=== PATIENT | male | born 1970 | race Caucasian/White ===

== ENCOUNTER 2018-03-30 15:20 | Emergency (ER) | payer MEDICAID, OTHER ==
[~2018-03-30] VITALS: Ht 172.7 cm; Wt 90.0 kg
[~2018-03-30 15:20] MED LIST: LISI-366 PO
[2018-03-30 15:22] VITALS: BP 156/74; PULSE 63; RESP 17; TEMP 98.3; O2SAT 98
[2018-03-30] MEDS ORDERED: LISI40TA PO (16:47)
--- NOTE | 2018-03-30 17:40 | PD ---
HPI Chief Complaint: General Weakness Time Seen by Provider: 17:10 Travel History International Travel<30 days: No Contact w/Intl Traveler<30days: No Traveled to known affect area: No History of Present Illness HPI 47yo M with PMH of HTN was sent here from PMD to the ED for further work up. Pt has been having generalized pain for 5 days from neck to legs and feels like muscle pain. Had went to [facility] ED 5 days ago and they did strep and influenza which was negative. Then he had fever 4 days ago and went to the ED at [facility] again 3 days ago. Said they did blood work and then sent him home. Pt followed up with his primary care today and was told to go to the ED. 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 Said it has actually improved but still weakness than before. Denies any focal weakness in arms or legs but more generalized weakness. Denies any visual changes, speech changes, numbness, chest pain, sob, n/v, abdominal pain. PFSH Past Medical History Hypertension: Yes Social History Alcohol Use: Yes Tobacco Use: No Substance Use: No Allergies-Medications (Allergen,Severity, Reaction): Coded Allergies: erythromycin base (Unverified Allergy, Unknown, 03/30/18) penicillin G (Unverified Allergy, Unknown, 03/30/18) atorvastatin (Unverified Adverse Reaction, Intermediate, MUSCLE SPASMS, ) amoxicillin (Unverified Adverse Reaction, Unknown, 03/30/18) Reported Meds & Prescriptions Reported Meds & Active Scripts Active Reported Lisinopril 40 Mg Tab 40 Mg PO DAILY Review of Systems Except as stated in HPI: all other systems reviewed are Neg Physical Exam Narrative GENERAL: 47yo M in distress. SKIN: Focused skin assessment warm/dry. HEAD: Atraumatic. Normocephalic. EYES: Pupils equal and round. No scleral icterus. No injection or drainage. ENT: No nasal bleeding or discharge. Mucous membranes pink and moist. NECK: Trachea midline. No JVD. CARDIOVASCULAR: Regular rate and rhythm. No murmur appreciated. RESPIRATORY: No accessory muscle use. Clear to auscultation. Breath sounds equal bilaterally. GASTROINTESTINAL: Abdomen soft, non-tender, nondistended. MUSCULOSKELETAL: No obvious deformities. No clubbing. No cyanosis. No edema. NEUROLOGICAL: Awake and alert. No obvious cranial nerve deficits. Motor grossly within normal limits in all extremities. Sensation intact. 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 Normal speech. PSYCHIATRIC: Appropriate mood and affect; insight and judgment normal. Data Data Last Documented VS Vital Signs Date Time Temp Pulse Resp B/P (MAP) Pulse Ox O2 Delivery O2 Flow Rate FiO2 03/30/18 16:42 18 03/30/18 15:22 98.3 63 156/74 (101) 98 Orders Orders Electrocardiogram (03/30/18 ) Mri Brain W/O Contrast (03/30/18 ) Complete Blood Count With Diff (03/30/18 17:31) Basic Metabolic Panel (Bmp) (03/30/18 17:31) Creatine Kinase (Cpk) (03/30/18 17:31) Magnesium (Mg) (03/30/18 17:31) CKMB (03/30/18 18:30) CKMB% (03/30/18 18:30) Sodium Chlor 0.9% 1000 Ml Inj (Ns 1000 M (03/30/18 19:30) Sodium Chlor 0.9% 1000 Ml Inj (Ns 1000 M (03/30/18 19:30) Sodium Chlor 0.9% 1000 Ml Inj (Ns 1000 M (03/30/18 19:30) Creatine Kinase (Cpk) (03/30/18 21:03) CKMB (03/30/18 21:54) CKMB% (03/30/18 21:54) Labs Laboratory Tests Test 03/30/18 18:30 03/30/18 21:54 White Blood Count 4.3 TH/MM3 Red Blood Count 4.74 MIL/MM3 Hemoglobin 14.7 GM/DL Hematocrit 42.0 % Mean Corpuscular Volume 88.5 FL Mean Corpuscular Hemoglobin 31.1 PG Mean Corpuscular Hemoglobin Concent 35.1 % Red Cell Distribution Width 13.2 % Platelet Count 275 TH/MM3 Mean Platelet Volume 7.4 FL Neutrophils (%) (Auto) 53.4 % Lymphocytes (%) (Auto) 33.2 % Monocytes (%) (Auto) 9.8 % Eosinophils (%) (Auto) 2.8 % Basophils (%) (Auto) 0.8 % Neutrophils # (Auto) 2.3 TH/MM3 Lymphocytes # (Auto) 1.4 TH/MM3 Monocytes # (Auto) 0.4 TH/MM3 Eosinophils # (Auto) 0.1 TH/MM3 Basophils # (Auto) 0.0 TH/MM3 CBC Comment DIFF FINAL Differential Comment Blood Urea Nitrogen 19 MG/DL Creatinine 0.79 MG/DL Random Glucose 88 MG/DL Calcium Level 9.2 MG/DL Magnesium Level 2.3 MG/DL Sodium Level 139 MEQ/L Potassium Level 4.6 MEQ/L Chloride Level 103 MEQ/L Carbon Dioxide Level 26.7 MEQ/L Anion Gap 9 MEQ/L Estimat Glomerular Filtration Rate 106 ML/MIN Total Creatine Kinase 3371 U/L 2322 U/L Creatine Kinase MB 56.2 NG/ML 40.7 NG/ML Creatine Kinase MB % 1.7 % 1.8 % MDM Medical Decision Making Medical Screen Exam Complete: Yes Emergency Medical Condition: Yes Interpretation(s) EKG: Sinus bradycardia at 51bpm. Normal axis. No ST segment elevation or depression. Differential Diagnosis Lacunar stroke vs. myositis vs. rhabdomyolitis vs. electrolyte abnormality vs. dehydration Narrative Course 47yo M with generalized muscle pain and weakness for 5 days. This is his third ED visit and said he did have some weakness in his hands. 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 MRI brain showed no acute intracranial abnormality is identified to explain the clinical symptoms. There is a mucous retention cyst in right maxillary sinus. Labs reviewed, no leukocytosis. H/H normal. BUN/creatinine ratio elevated. Creatinine is normal at 0.79. CPK is elevated at 3371. Pt denies working out a lot but did say he has been working a lot. Pt given NS IVF x3. Pt reevaluated at bedside and feels better. Repeat CPK is trending down to 2322. Advised pt to orally hydrate and follow up with primary care physician. Return precautions given. Diagnosis Primary Impression: Rhabdomyolysis Qualified Codes: M62.82 - Rhabdomyolysis Patient Instructions: General Instructions Departure Forms: Tests/Procedures Additional Instructions: Please follow up with your primary care physician in 2-3 days. Return to the ED if symptoms worsen. Med/Other Pt SpecificInfo: No Change to Meds Disposition: 01 DISCHARGE HOME Condition: Stable Rosalinda Kemp DO March 30, 2018 17:40
--- NOTE | 2018-03-30 18:36 | RADRPT ---
EXAM DATE: 03/30/2018 6:21 PM EDT AGE/SEX: 47 years / Male INDICATIONS: . General weakness over entire body. CLINICAL DATA: This is the patient's initial encounter. Patient reports that signs and symptoms have been present for 4 - 6 days and indicates a pain score of 6/10. MEDICAL/SURGICAL HISTORY: Hypertension. Renal calculi. . Shoulder sx. COMPARISON: No prior [facility] exams available for comparison. TECHNIQUE: Multiplanar, multisequence examination of the brain was performed without contrast. FINDINGS: Cerebrum: The ventricles are normal for age. No evidence of midline shift, mass lesion, hemorrhage or acute infarction. No extraaxial fluid collections are seen. The pituitary gland and suprasellar cistern are normal in configuration. White Matter: No significant signal abnormalities are seen in the white matter. Posterior Fossa: The cerebellum and brainstem are intact. The 4th ventricle is midline. The cerebel lopontine angle is unremarkable. The cerebellar tonsils are normal in position. Diffusion Imaging: No focal areas of restricted diffusion are seen. No evidence of acute infarction . Extracranial: There is a mucous retention cyst in the right maxillary sinus. Other sinuses are clear . CONCLUSION: 1. No acute intracranial abnormality is identified to explain the clinical symptoms. 2. There is a mucous retention cyst in the right maxillary sinus. Electronically signed by: Fady Burgos MD 03/30/2018 6:35 PM EDT
[2018-03-30 18:50] LABS: AUTOMATED NEUTROPHIL # 2.3 TH/MM3 (1.8-7.7); BASOPHIL % 0.8 % (0.0-2.0); EOSINOPHIL # 0.1 TH/MM3 (0-0.4); EOSINOPHIL % 2.8 % (0.0-4.0); HEMOGLOBIN 14.7 GM/DL (13.0-17.0); LYMPH % 33.2 % (9.0-44.0); LYMPHOCYTE # 1.4 TH/MM3 (1.0-4.8); MEAN CELL VOLUME 88.5 FL (80.0-100.0); MEAN CORPUSCULAR HEMOGLOBIN 31.1 PG (27.0-34.0); MEAN CORPUSCULAR HGB CONC 35.1 % (32.0-36.0); MEAN PLATELET VOLUME 7.4 FL (7.0-11.0); MONO % 9.8 % (0.0-8.0); MONOCYTE # 0.4 TH/MM3 (0-0.9); NEUT % 53.4 % (16.0-70.0); PLATELET COUNT 275 TH/MM3 (150-450); RED BLOOD COUNT 4.74 MIL/MM3 (4.50-5.90); RED CELL DISTRIBUTION WIDTH 13.2 % (11.6-17.2); WHITE BLOOD COUNT 4.3 TH/MM3 (4.0-11.0)
[2018-03-30 18:58] LABS: BICARBONATE 26.7 MEQ/L (21.0-32.0); CALCIUM 9.2 MG/DL (8.5-10.1); CREATININE 0.79 MG/DL (0.60-1.30); MAGNESIUM 2.3 MG/DL (1.5-2.5)
[2018-03-30] MEDS ORDERED: SODIUM CHLOR 0.9% 1000 ML INJ 1,000 ML IV ONE ×3 (19:30)
--- NOTE | 2018-03-31 14:57 | EKG ---
Date Performed: 03/30/2018 Time Performed: 17:27:02 PTAGE: 47 years EKG: SINUS BRADYCARDIA BORDERLINE ECG NO PREVIOUS TRACING DOCTOR: Nicholas Quiroz Interpretating Date/Time 03/31/2018 14:53:39
== END 2018-03-30 23:19 | disposition home or self-care (01) ==
LOC: NEPD 15:20
DX: M62.82 Rhabdomyolysis (principal); I10 Essential (primary) hypertension
CPT/HCPCS: 70551; 80048; 82550; 82552; 83735; 85025; 93005; 96360; 96361; 99285; J7030